=== PATIENT | male | born 1975 | race Caucasian/White ===

== ENCOUNTER 2016-12-22 13:18 | Emergency (ER) | payer MEDICAID ==
--- NOTE | 2016-12-22 13:22 | ED Physician Chart ---
Chief Complaint/HPI - Patient Information Date Seen:: 12/22/16 Time Seen:: 13:22 Chief Complaint:: abdominal pain History of Present Illness:: 41-year-old male, otherwise healthy, complains of acute, constant, aching, severe, now improving, tentative at worst, left upper quadrant abdominal pain since yesterday. Says he took Tylenol which may have helped the pain. Has associated nausea but no vomiting. Says that he drank alcohol heavily on Wednesday night. Allergies:: Allergies Allergy/AdvReac Type Severity Reaction Status Date / Time MDX No Known Allergies - Nka Allergy Verified 09/08/13 08:40 [No Known Allergies - Nka] Historian:: Patient Review:: Nurse's Note Reviewed Review of Systems - Review of Systems Other: Complete system review otherwise unremarkable except as noted in history of present illness. Past Medical History - Past Medical History Past Medical History: No significant medical hx Family History: None Social History: Non Smoker, Alcohol, Illicit Drug Use, Employed Surgical History: None Psychiatricy History: None Medication: None Family Medical History - Family Member Mother Ethnicity: Living Status: Still Living Hx Family Cancer: No Hx Family Diabetes: Yes Physical Exam - Physical Examination Other:: INITIAL VITAL SIGNS: Reviewed by me GENERAL: Alert and interactive. Moderate distress due to pain HEAD: Head is normocephalic and atraumatic EYES: EOMI. PERRL. No scleral icterus. No conjunctival injection ENT: Moist mucous membranes. NECK: Supple. No masses. Full range of motion RESPIRATORY: No tachypnea. Clear breath sounds bilaterally. No wheezing, rales, or rhonchi CV: Regular rate and rhythm. No murmurs, rubs, or gallops ABDOMEN: Soft, non-distended, slight tenderness to palpation left upper quadrant. No guarding. No rebound. No masses. EXTREMITIES: No deformity. No cyanosis. No edema. SKIN: Warm and dry. No obvious rashes. NEUROLOGIC: Alert and oriented. Face is symmetric. Speech is normal. Moves all extremities equally. Motor and sensory distally intact. Labs/Radiology/EKG Results - Radiology Results Results: CT abdomen and pelvis without contrast per radiology 3 mm Was the limit of the urinary bladder to the left ureterovesical junction. This is associated with mild hydronephrosis involving the left kidney. Several punctate nonaffected right renal calculi - EKG Interpretations Comments:: 12-lead EKG Interpretation by Jerardo Nieto MD: Normal Sinus Rhythm with ventricular rate of 75 beats per minute Normal axis Normal intervals No acute ST or T wave changes. No obvious STEMI ED Septic Shock - . Is Septic Shock (SBP<90, OR Lactate>4 mmol\L) present?: No Reassessment (Disposition) - Reassessment Reassessment:: Blood pressure was noted to be elevated over 120/80. There were no signs of hypertension. Discussed the findings with the patient and recommended that the patient follow up with the primary care physician regarding the elevated blood pressure. Patient had acute left upper quadrant abdominal pain and associated nausea. Pain likely related to his heavy drinking on Wednesday night and recently passed ureterolithiasis. CT scan shows that he has a 3 mm calculus of the lumen of the urinary bladder and some mild nephrosis he probably recently passed a kidney stone. And labs essentially unremarkable. Provided the patient with intramuscular analgesics, by mouth antiemetics, GI cocktail, Pepcid. Symptoms greatly improved. Prescribed Pepcid daily 20 days and Zofran 4 mg ODT to be given every 6 hours when necessary nausea. Recommended follow-up with PCP 1-2 days. Return to ER precautions given. Patient says he understands and agrees the plan. - Diagnosis Diagnosis:: Acute left upper quadrant abdominal pain Acute ureteral lithiasis Acute alcohol related gastritis Acute nausea Elevated blood pressure without the diagnosis hypertension - Aftercare/Follow up Instructions Aftercare/Follow-Up Instructions:: Counseled pt regarding lab results/diagnosis & need follow up, Refer to Discharge Instructions Medication Prescribed:: Pepcid Zofran - Patient Disposition Discharge/Transfer:: Home Condition at Disposition:: Improved ED Discharge Plan - Patient Disposition Admit/Discharge/Transfer: PT DISCHARGED HOME Condition at Disposition: Improved Instructions: Gastritis, Adult, [id number]
[2016-12-22] MEDS ORDERED: Maalox 30 mL Cup PO STA (13:29)
[2016-12-22] MEDS ORDERED: Donnatal Liq 5 ML UDC PO STA (13:29)
[2016-12-22] MEDS ORDERED: Maalox 30 mL Cup ONE (13:40)
[2016-12-22] MEDS ORDERED: Donnatal Liq 5 ML UDC ONE (13:41)
[2016-12-22 13:45] LABS: HEMATOCRIT 45.3 % (39.0-49.0); HEMOGLOBIN 15.3 gm/dL (13.2-17.3); MEAN CELL VOLUME 87.1 fl (80-99); MEAN CORPUSCULAR HEMOGLOBIN 29.3 pg (26.0-30.0); MEAN CORPUSCULAR HGB CONC 33.7 pg (28.0-36.0); MEAN PLATELET VOLUME 9.6 fl; PLATELET COUNT 214 Th/cmm (150-400); RED BLOOD COUNT 5.21 Mil/cmm (4.30-5.70); RED CELL DISTRIBUTION WIDTH 12.7 % (11.5-20.0)
[2016-12-22 13:56] LABS: BAND NEUTROPHILE 3 % (0-10); EOSINOPHIL 1 % (0-5); NEUTROPHILS 80 % (40-80); TOTAL CELLS COUNTED 100
[2016-12-22 13:57] LABS: PLATELET ESTIMATE ADEQUATE (NORMAL); PLATELET MORPHOLOGY NORMAL (NORMAL)
[2016-12-22 14:09] LABS: ALB/GLOB RATIO 1.4 (1.0-1.8); ALKALINE PHOSPHATASE 90 U/L (34-104); AMYLASE SERUM 45 U/L (29-103); ANION GAP 8.6 (7.0-16.0); BUN - UREA NITROGEN 15 mg/dL (7-25); BUN/CREATININE RATIO 12.5; CALCIUM SERUM 9.5 mg/dL (8.6-10.3); CARBON DIOXIDE 21.1 mEq/L (21.0-31.0); CHLORIDE 103 mEq/L (98-107); CREATININE - SERUM 1.2 mg/dL (0.7-1.3); GLUCOSE 165 mg/dL (70-105); LIPASE 20 U/L (11-82); POTASSIUM SERUM 3.7 mEq/L (3.5-5.1); SGOT 12 U/L (13-39); SGPT/ALT 9 U/L (7-52); SODIUM SERUM 129 mEq/L (136-145)
[2016-12-22 14:43] LABS: BILIRUBIN,TOTAL 0.9 mg/dL (0.3-1.0)
--- NOTE | 2016-12-22 14:49 | Diagnostic Imaging Report ---
CT scan abdomen and pelvis without intravenous contrast HISTORY: Pain Total DLP equals 923 CTDI equals 16.8 Axial sections were obtained from the xiphoid process down to the pubic symphysis. The liver exhibits a normal size and contour. No focal lesions. Spleen appears normal. No abnormality seen in the region of the pancreas. There are several punctate nonobstructing calculi within the medullary region of the right kidney. There is mild dilatation and hydronephrosis) involving the collecting system of the left kidney. This is associated with a 3 mm calculus within the lumen of the urinary bladder near the left ureterovesical junction. The remainder of the pelvis demonstrates preservation of normal fat planes. No abnormal soft tissue masses or abnormal fluid collections. No abnormality seen in the region of the appendix. IMPRESSION: 1. 3 mm calculus within the lumen of the urinary bladder near the left ureterovesical junction. This is associated with mild hydronephrosis involving the left kidney. 2. Several punctate nonobstructing right renal calculi
[2016-12-22 15:20] LABS: URINE COLOR YELLOW; URINE GLUCOSE (UA) NEGATIVE (NEGATIVE)
[2016-12-22 15:21] LABS: URINE BACTERIA NONE SEEN /hpf (NONE SEEN); URINE BILIRUBIN NEGATIVE (NEGATIVE); URINE BLOOD NEGATIVE (NEGATIVE); URINE EPITHELIAL CELLS NONE SEEN /lpf (FEW); URINE KETONE NEGATIVE (NEGATIVE); URINE PH 5.5; URINE PROTEIN NEGATIVE (NEGATIVE); URINE RBC NONE SEEN /hpf (0-5); URINE UROBILINOGEN 0.2 E.U./dL (0.2 - 1.0); URINE WBC NONE SEEN /hpf (0-5)
== END 2016-12-22 15:30 | disposition home or self-care (01) ==
LOC: ER 13:18
DX: K29.20 Alcoholic gastritis without bleeding (principal); N20.1 Calculus of ureter; I10 Essential (primary) hypertension
CPT/HCPCS: 99285; 74176; 96372; 93005; 84484; 36415; 83605; 85007; 85027; 81001; 82150; 83690; 80053; 87040; Q0162; J1885

== ENCOUNTER 2017-04-22 12:35 | Emergency (ER) | payer SELFPAY ==
--- NOTE | 2017-04-22 13:36 | ED Physician Chart ---
ED Chief Complaint/HPI - Patient Information Date Seen:: 04/22/17 Time Seen:: 13:10 Chief Complaint:: pain right heel History of Present Illness:: Patient has been having pain of his right heel for the last 2 weeks. He denies trauma. Patient has been taking up to 10 ibuprofen a day. Allergies:: Allergies Allergy/AdvReac Type Severity Reaction Status Date / Time No Known Allergies Allergy Verified 12/22/16 13:28 Vitals:: Vital Signs - 8 hr 04/22/17 12:40 Temp 97.0 F HR 70 RR 16 BP 153/97 O2 Sat % 100 Historian:: Patient Review:: Nurse's Note Reviewed ED Review of Systems - Review of Systems General/Constitutional: No fever, No chills Skin: No skin lesions Head: No headache Eyes: No loss of vision ENT: No earache Neck: No neck pain Cardio Vascular: No chest pain Pulmonary: No SOB GI: No nausea, No vomiting G/U: No dysuria, No frequency, No nacturia Musculoskeletal: Bone or joint pain Endocrine: No polyuria, No polydipsia Psychiatric: No prior psych history Hematopoietic: No bruising Allergic/Immuno: No urticaria, No angioedema Neurological: No syncope, No focal symptoms ED Past Medical History - Past Medical History Past Medical History: Other (gout) Family History: Diabetes Melitus, HTN Social History: Smoker, Other (patient smokes occasionally) Surgical History: None Psychiatricy History: None Medication: Reviewed Family Medical History - Family Member Mother Ethnicity: Living Status: Still Living Hx Family Cancer: No Hx Family Diabetes: Yes Other Medical History: denies family medical hx ED Physical Exam - Physical Examination General/Constitutional: Well-developed, well-nourished, Alert, No distress Head: Atraumatic Eyes: Lids, conjuctiva normal, PERRL Skin: Nl inspection, No rash, No skin lesions, No ecchymosis ENMT: External ears, nose nl, Lips, teeth, gums nl Neck: No nuchal rigidity Respiratory: Nl effort/Exclusion Cardio Vascular: RRR GI: No tenderness/rebounding/guarding, No hernia, Nondistended : No CVA tenderness Other Extremities comments:: Right ankle: There is slight tenderness posterior to the medial malleolus; neurovascular status is intact; there is no tenderness of the right heel Neuro/Psych: Alert/oriented, Normal sensory exam, No focal deficits Misc: Normal back ED Septic Shock - . Is Septic Shock (SBP<90, OR Lactate>4 mmol\L) present?: No - <6hrs of presentation: Vital Signs: Vital Signs - 8 hr 04/22/17 12:40 Temp 97.0 F HR 70 RR 16 BP 153/97 O2 Sat % 100 ED Reassessment (Disposition) - Reassessment Reassessment Condition:: Unchanged - Diagnosis Diagnosis:: gout right foot - Aftercare/Follow up Instructions Aftercare/Follow-Up Instructions:: Refer to Discharge Instructions Medication Prescribed:: Prescription for Naprosyn 250 mg #24 to take 3 as soon as possible and then one 3 times a day and Capron 10/325 #16 to take 1 4 times a day as necessary - Patient Disposition Discharge/Transfer:: Home Condition at Disposition:: Stable, Unchanged
== END 2017-04-22 14:00 | disposition home or self-care (01) ==
LOC: ER 12:35
DX: M10.071 Idiopathic gout, right ankle and foot (principal); F17.200 Nicotine dependence, unspecified, uncomplicated
CPT/HCPCS: 99283; 96372; J1885; Z7502

== ENCOUNTER 2019-03-07 11:27 | Emergency (ER) | payer MEDICAID ==
--- NOTE | 2019-03-07 13:11 | ED Physician Chart ---
ED Chief Complaint/HPI - Patient Information Date Seen:: 03/07/19 Time Seen:: 11:35 Chief Complaint:: Right Foot Pain History of Present Illness:: onset x 3 days of right foot pain, redness, and swelling; pt denies trauma, gait changes, weakness, dizziness, paresthesias, vertigo, H/As, neck pain, C/P, SOB, Abd. Pain, A/N/V/D/C, fever, chills, or urinary s/s; pt's last tetanus shot : < 5 years; UTD; Hx of Gout Allergies:: Allergies Allergy/AdvReac Type Severity Reaction Status Date / Time No Known Allergies Allergy Verified 03/07/19 12:05 Vitals:: Vital Signs - 8 hr 03/07/19 11:39 Temp 97.3 F HR 77 RR 18 BP 133/89 O2 Sat % 98 Historian:: Patient Review:: Nurse's Note Reviewed, Old Chart Reviewed ED Review of Systems - Review of Systems General/Constitutional: No fever, No chills, No weight loss, No weakness, No diaphoresis, No edema, No loss of appetite Skin: No skin lesions, No rash, No bruising Head: No headache, No light-headedness Eyes: No loss of vision, No pain, No diplopia ENT: No earache, No nasal drainage, No sore throat, No tinnitus Neck: No neck pain, No swelling, No thyromegaly, No stiffness, No mass noted Cardio Vascular: No chest pain, No palpitations, No PND, No orthopnea, No edema Pulmonary: No SOB, No cough, No sputum, No wheezing GI: No nausea, No vomiting, No diarrhea, No pain, No melena, No hematochezia, No constipation, No hematemesis G/U: No dysuria, No frequency, No hematuria, No nacturia Musculoskeletal: Bone or joint pain, No back pain, No muscle pain Endocrine: No polyuria, No polydipsia Psychiatric: No prior psych history, No depression, No anxiety, No suicidal ideation, No homicidal ideation, No auditory hallucination, No visual hallucination Hematopoietic: No bruising, No lymphadenopathy Allergic/Immuno: No urticaria, No angioedema Neurological: No syncope, No focal symptoms, No weakness, No paresthesia, No headache, No seizure, No dizziness, No confusion, No vertigo ED Past Medical History - Past Medical History Obtainable: Yes Past Medical History: Arthritis, Other (Gout) Family History: HTN Social History: Non Smoker, No Alcohol, No Drug Use, Surgical History: None Psychiatricy History: None Medication: Reviewed Family Medical History - Family Member Mother History Unknown: Yes Ethnicity: Living Status: Still Living Hx Family Cancer: No Hx Family Diabetes: Yes ED Physical Exam - Physical Examination General/Constitutional: Awake, Well-developed, well-nourished, Alert, No distress, GCS 15, Non-toxic appearing, Ambulatory Head: Atraumatic Eyes: Lids, conjuctiva normal, PERRL, EOMI Skin: Nl inspection, No rash, No skin lesions, No ecchymosis, Well hydrated, No lymphadenopathy Other Skin comments:: as above; good turgor with MMM ENMT: External ears, nose nl, TM canals nl, Nasal exam nl, Lips, teeth, gums nl , Oropharynx nl, Tonsils nl Neck: Nontender, Full ROM w/o pain, No JVD, No nuchal rigidity, No bruit, No mass, No stridor Other Neck comments:: supple; no meningeal signs; no cervical tenderness; no bruits Respiratory: Nl effort/Exclusion, Clear to Auscultation, No Wheeze/Rhonchi/Rales Cardio Vascular: RRR, No murmur, gallop, rubs, NL S1 S2, Carotid/Femoral/Distal pulses equal bilaterally GI: No tenderness/rebounding/guarding, No organomegaly, No hernia, Normal BS's, Nondistended, No mass/bruits, No McBurney tenderness, Rectum exam nl Other GI comments:: no pulsatile masses : No CVA tenderness Extremities: No tenderness or effusion, Full ROM, normal strength in all extremities, No edema, Normal digits & nails Other Extremities comments:: + right foot localized cellulitis and gouty arthritic changes, joint tenderness , redness, and swelling; no septic joints; full active ROMs of all joints; DTRs : 2+ bilaterally; Gait: WNL; no FBs; no ligament instability; good motor, tendon , and sensory functions; good NV functions Neuro/Psych: Alert/oriented, DTR's symmetric, Normal sensory exam, Normal motor strength, Judgement/insight normal, Mood normal, Normal gait, No focal deficits Other Neuro/Psych comments:: no focal signs Misc: Normal back, No paraspinal tenderness ED Labs/Radiology/EKG Results - Lab Results Comments:: deferred by pt - Radiology Results Comments:: deferred by pt ED Septic Shock - . Is Septic Shock (SBP<90, OR Lactate>4 mmol\L) present?: No - <6hrs of presentation: Vital Signs: Vital Signs - 8 hr 03/07/19 11:39 Temp 97.3 F HR 77 RR 18 BP 133/89 O2 Sat % 98 ED Reassessment (Disposition) - Reassessment Reassessment:: pt is asymptomatic/comfortable upon discharge Reassessment Condition:: Improved - Diagnosis Diagnosis:: Right Foot Pain; Right Foot Localized Cellulitis; Gouty Arthritis; Gout; HTN; Right Foot Erythema; Right Foot Gout - Aftercare/Follow up Instructions Aftercare/Follow-Up Instructions:: Counseled pt regarding lab results/diagnosis & need follow up, Refer to Discharge Instructions, Counseled pt & family regarding lab results/diagnosis & need follow up Medication Prescribed:: Rx: Keflex 500mg po qid x 10 days; Indocin 25mg po tid x 7 days prn pain; take with meals; Warm Compresses/Heating Pads to affected areas; take all medications as prescribed - Patient Disposition Discharge/Transfer:: Home Condition at Disposition:: Stable, Improved (RTER prn if existing s/s reoccur and/or get worse and/or any other new s/s occur; ACIs given for all above Dx; Have Blood Pressure re-checked in one day by PMD; Refer to Prosthetics Assistant/ Orthopedist/Vascular Surgeon/Per Diem Nurse ROSINA; F/U with PMD in one day or prn; RTER prn if concerned)
== END 2019-03-07 12:15 | disposition home or self-care (01) ==
LOC: ER 11:27
DX: L03.115 Cellulitis of right lower limb (principal); M10.9 Gout, unspecified; M19.90 Unspecified osteoarthritis, unspecified site; I10 Essential (primary) hypertension
CPT/HCPCS: Z7502